=== PATIENT | male | born 1970 | race Caucasian/White ===

== ENCOUNTER 2017-03-01 10:32 | Inpatient (IN) | payer OTHER ==
[2017-03-01 11:51] LABS: BASO % 0.6 % (0.0-2.0); EOS % 0.3 % (0.0-4.0); HEMATOCRIT 55.6 % (35.0-51.0); LYMPH # 0.9 K/uL (1.0-4.3); LYMPH % 12.8 % (20.0-40.0); MEAN CELL VOLUME 93.6 fL (80.0-94.0); MEAN CORPUSCULAR HEMOGLOBIN 32.6 pg (27.0-31.0); MEAN CORPUSCULAR HGB CONC 34.8 g/dL (33.0-37.0); MEAN PLATELET VOLUME 8.7 fL (7.2-11.7); MONO # 0.8 K/uL (0.0-0.8); MONO % 12.3 % (0.0-10.0); NRBC % 0.1 % (0.0-2.0); RED CELL DISTRIBUTION WIDTH 13.7 % (11.5-14.5); WHITE BLOOD COUNT 6.7 K/uL (4.8-10.8)
[2017-03-01 11:55] LABS: RBC URINE 176 /hpf (0-3); URINE BILIRUBIN NEGATIVE (NEGATIVE); URINE BLOOD 3+ (NEGATIVE); URINE CALCIUM OXALATE CRYSTALS FEW /hpf (<OCC); URINE COLOR Amber (YELLOW); URINE GLUCOSE (UA) NORMAL (Normal); URINE KETONE NEGATIVE (NEGATIVE); URINE LEUKOCYTE ESTERASE NEG Leu/uL (Negative); URINE PROTEIN 2+ mg/dL (NEGATIVE); WBC URINE 3 /hpf (0-5)
[2017-03-01 11:59] LABS: CHLORIDE 95 mmol/L (98-107); POTASSIUM 4.1 mmol/L (3.6-5.2); SODIUM 131 mmol/L (132-148)
--- NOTE | 2017-03-01 12:00 | C.PDOC ---
History Of Present Illness Patient is a 46 y/o male with history of alcohol abuse presents requesting detox. Patient reports last alcohol use was yesterday and notes tremors. He denies physical complaints, suicidal, or homicidal ideations. Time Seen by Provider: 03/01/17 11:11 Chief Complaint (Nursing): Substance Abuse History Per: Patient History/Exam Limitations: no limitations Onset/Duration Of Symptoms: Hrs Current Symptoms Are (Timing): Still Present Suicide/Self Injury Attempted (Context): None Modifying Factor(s): Alcohol Pain Scale Rating Of: 0 Associated Symptoms: denies: Suicidal Thoughts Involuntary Hold By: None Recent travel outside of the [place]: No Past Medical History Reviewed: Historical Data, Nursing Documentation, Vital Signs Vital Signs: Last Vital Signs Temp 98.5 F 03/01/17 13:05 Pulse 96 H 03/01/17 13:05 Resp 20 03/01/17 13:05 BP 145/97 H 03/01/17 13:05 Pulse Ox 98 03/01/17 13:05 Family History: States: Unknown Family Hx - Social History Hx Alcohol Use: Yes Hx Substance Use: No - Immunization History Hx Tetanus Toxoid Vaccination: No Hx Influenza Vaccination: No Hx Pneumococcal Vaccination: No Review Of Systems Constitutional: Negative for: Fever, Chills Respiratory: Negative for: Cough, Shortness of Breath Gastrointestinal: Negative for: Nausea, Vomiting, Abdominal Pain Neurological: Positive for: Other (Arm tremors ) Psych: Negative for: Suicidal ideation Physical Exam - Physical Exam Appears: Non-toxic, No Acute Distress Skin: Warm, Dry Head: Atraumatic Eye(s): bilateral: Normal Inspection Oral Mucosa: Moist Tongue: Other (Positive tongue fasciculations) Neck: Supple Chest: Symmetrical, No Deformity Cardiovascular: Rhythm Regular, No Murmur Respiratory: No Rales, No Rhonchi, No Wheezing, Other (Clear to auscultation bilaterally ) Gastrointestinal/Abdominal: Soft, No Tenderness, No Distention, No Guarding, No Rebound Extremity: Normal ROM, No Tenderness, Other (Tremors in bilateral upper extremities ) Neurological/Psych: Oriented x3 ED Course And Treatment - Laboratory Results Result Diagrams: 03/01/17 11:47 03/01/17 11:47 O2 Sat by Pulse Oximetry: 99 (RA) - Radiology CXR: Viewed By Me CXR Interpretation: Yes: No Acute Disease Medical Decision Making Medical Decision Making: EKG, CXR, and labs were ordered. 12:18PM Patient in active alcohol withdrawal and was given librium in ED. EKG shows NSR at 73bpm with normal intervals and no st changes. Cxray negative for acute pathology. Labs and ua reviewed. Patient has hematuria and elevated lfts. He has no somatic complaints. Patient and patient's brother made aware of the abnormalities and will need outpatient follow-up. Patient is medically clear for inpatient detox. Disposition - Disposition Disposition: HOSPITALIZED Disposition Time: 12:19 Condition: FAIR - Clinical Impression Clinical Impression: Alcohol dependence, Elevated liver function tests, Hematuria - Scribe Statement The provider has reviewed the documentation as recorded by the Scribe Mela Matthews All medical record entries made by the Angela were at my direction and personally dictated by me. I have reviewed the chart and agree that the record accurately reflects my personal performance of the history, physical exam, medical decision making, and the department course for this patient. I have also personally directed, reviewed, and agree with the discharge instructions and disposition.
[2017-03-01 12:01] LABS: ALB/GLOB RATIO 1.2 (1.0-2.1); ALKALINE PHOSPHATASE 148 U/L (38-126); AST/SGOT 207 U/L (17-59); BLOOD UREA NITROGEN 15 mg/dL (9-20); CARBON DIOXIDE 24 mmol/L (22-30); GFR AFRICAN-AMERICAN > 60; TOTAL PROTEIN 8.4 g/dL (6.3-8.3)
[2017-03-01 12:02] LABS: ALCOHOL SERUM < 10 mg/dl (0-10); ALT/SGPT 134 U/L (21-72); CALCIUM 9.8 mg/dl (8.6-10.4); GLUCOSE,RANDOM 91 mg/dL (75-110)
--- NOTE | 2017-03-01 12:03 | RAD ---
HISTORY: detox COMPARISON: No prior. FINDINGS: LUNGS: No acute infiltrates. Questionable small nodular density left lung apex PLEURA: No significant pleural effusion identified, no pneumothorax apparent. CARDIOVASCULAR: Normal. OSSEOUS STRUCTURES: No significant abnormalities. VISUALIZED UPPER ABDOMEN: Normal. OTHER FINDINGS: None. IMPRESSION: No active disease.
[2017-03-01] MEDS ORDERED: Pneumococcal 23-Valent Vaccine IM ONE (14:37)
--- NOTE | 2017-03-01 15:01 | PCM.BM ---
<Amanda Herman - Last Filed: 03/01/17 14:58> Treatment Plan Problems - Problems identified on initial assessmt potential for alcohol withrawal Date Initiated: 03/01/17 Time Initiated: 14:59 Assessment reference: NA Status: Active anxiety Date Initiated: 03/01/17 Time Initiated: 15:00 Assessment reference: NA Status: Active Treatment assets and liabiliti Patient Assests: cooperative, motivated, self-reliant, ADL independent, physically healthy, good support system, negotiates basic needs, cognitively intact Patient Liabilities: substance abuse - Milieu Protocol Maintain good personal hygiene: daily Encourage regular showers, daily Remind patient to perform daily oral care, daily Assist patient to perform ADL's Conduct patient checks and document Observation sheet: Q15 minutes Maintain personal safety: every shift Educate patient to report safety concerns to staff, every shift Monitor environment for contraband/sharps Medication safety: Monitor for expected outcome, potential side effects: every shift, Assess barriers to learning: every shift, Assess readiness for medication education: every shift <Blayne Nick - Last Filed: 03/02/17 21:31> - Diagnosis (1) Alcohol dependence Status: Acute Interventions: 03/02/17 21:32 * Assess 7x/week regarding severity of withdrawal * Educate regarding risks, benefits, side effects and alternatives of medications * Use Motivational Interviewing for abstinence * Use CBT for relapse prevention * Medication management for withdrawal symptoms * Encourage medication assisted treatment * <Keyana Hopson - Last Filed: 03/03/17 16:07> Family Contact Family involvement: Family/SO is involved Family contact: Patient agrees to contact, Telephone contact initiated by staff Family contact name: Family contacted how many times per week?: 3 - Goals for Treatment Patient goals for treatment: Complete detox and transition to o/o treatment. Discharge/Continuing Care - Education Needs Education Needs: Patient Medication, Patient Diagnosis/Disease Process, Patient Coping Skills, Patient Anger Management skills, Patient Placement options, Patient Community resources - Discharge Discharge Criteria: No longer exhibiting s/s of withdrawal, Reduction of target symptoms Discharge to:: With Family - Treatment Team Participation Patient/Family/SO Statement: 03/03/17 16:06 "I know I need to have outpatient aftercare. I need support." Discussed with Family/SO: No Was Patient/Family/SO present at Treatment Team Meeting: Yes
[2017-03-01] MEDS: Multiple Vitamins Tab PO SCH (15:59)
[2017-03-02 08:48] LABS: CHLORIDE 98 mmol/L (98-107); POTASSIUM 3.3 mmol/L (3.6-5.2); SODIUM 132 mmol/L (132-148)
[2017-03-02 08:50] LABS: ALB/GLOB RATIO 1.2 (1.0-2.1); ALKALINE PHOSPHATASE 107 U/L (38-126); AST/SGOT 234 U/L (17-59); BILIRUBIN,TOTAL 3.1 mg/dL (0.2-1.3); CARBON DIOXIDE 26 mmol/L (22-30); GFR AFRICAN-AMERICAN > 60; TOTAL PROTEIN 6.7 g/dL (6.3-8.3)
[2017-03-02 08:51] LABS: ALT/SGPT 160 U/L (21-72); BLOOD UREA NITROGEN 19 mg/dL (9-20); CALCIUM 9.3 mg/dl (8.6-10.4); GLUCOSE,RANDOM 90 mg/dL (75-110); MAGNESIUM 1.7 mg/dL (1.6-2.3)
[2017-03-02 09:22] LABS: THYROID STIMULATING HORMONE 1.82 mIU/L (0.46-4.68)
[2017-03-02] MEDS: Multiple Vitamins Tab PO SCH (09:24)
[2017-03-02] MEDS ORDERED: Potassium Chloride 20 mEq ER Tab PO ONE ×3 (10:00→16:31)
--- NOTE | 2017-03-02 13:16 | CARD ---
APPROVED REPORT EKG Measurement Heart [id number] <Conclusion> Normal sinus rhythm Normal ECG
--- NOTE | 2017-03-02 14:04 | PCM.PSYCH ---
Initial Psychiatric Evaluation - Initial Psychiatric Evaluation Type of Admission: Voluntary Legal Status: Capacity Chief Complaint (in patient's own words): "alcohol" Patient's Reaction to Hospitalization: A 46 year old male is admitted for alcohol withdrawal and detox. Pt started drinking since the age of 13. Pt admits to drinking 6 beers a day and more on the weekends. Pt admit 12 days ago, he took off from work and left home so he can binge on alcohol. Denies any drug use currently or in the past. Smokes 1 pack of cigarettes a day. Prior to admission, pt was experiencing nausea, vomiting and tremors. Pt denies feeling depressed, difficulty sleeping, any SI or HI, or ebenezer auditory or visual halluciations. Pt is , no children, and lives with his . 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 Pt denies any legal issues currently or in the past. Pt mentioned he visited a rehabilitation center in [place], but they told him he must first complete a detox program prior to entering their program. Pt denies having any psychiatric illnesses. Pt has never attended any detox/rehab facility in the past. PMH: denies Allergies: NKDA Medications: Denies Famil hx: Father uses alcohol and has HTN, Denies any one else with any medical issues, psychiatric issues, or substance abuse History of Present Illness and Precipitating Events: A 46 year old male is admitted for alcohol withdrawal and detox. Pt started drinking since the age of 13. Pt admits to drinking 6 beers a day and more on the weekends. Pt admit 12 days ago, he took off from work and left home so he can binge on alcohol. Denies any drug use currently or in the past. Smokes 1 pack of cigarettes a day. Prior to admission, pt was experiencing nausea, vomiting and tremors. Pt denies feeling depressed, difficulty sleeping, any SI or HI, or ebenezer auditory or visual halluciations. Pt is , no children, and lives with his . 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 Pt denies any legal issues currently or in the past. Pt denies having any psychiatric illnesses. Pt has never attended any detox/rehab facility in the past. PMH: denies Allergies: NKDA Medications: Denies Family hx: Father uses alcohol and has HTN. Denies any one else with any medical issues, psychiatric issues, or substance abuse Current Medications: Active Medications Generic Name Dose Route Start Last Admin Trade Name Freq PRN Reason Stop Dose Admin Clonidine HCl 0.1 mg 03/01/17 14:59 Catapres PO Q4H PRN HR > 100 OR BP > 150/100 Folic Acid 1 mg 03/01/17 15:00 03/02/17 09:24 Folic Acid PO 1 mg DAILY RYAN Administration Gabapentin 100 mg 03/01/17 18:00 03/02/17 09:24 Neurontin PO 100 mg TID RYAN Administration Hydroxyzine HCl 25 mg 03/01/17 15:00 Atarax PO Q4H PRN Anxiety Lorazepam 2 mg 03/01/17 15:00 03/02/17 09:24 Ativan PO 03/06/17 14:59 2 mg Q6H RYAN Administration Taper Lorazepam 1 mg 03/01/17 14:59 Ativan PO Q4H PRN Symptoms of alcohol withdrawl Multivitamins 1 tab 03/01/17 15:00 03/02/17 09:24 Hexavitamin PO 1 tab DAILY RYAN Administration Thiamine HCl 100 mg 03/01/17 15:00 03/02/17 09:24 Vitamin B1 Tab PO 100 mg DAILY RYAN Administration Trazodone HCl 50 mg 03/01/17 14:59 03/01/17 21:40 Desyrel PO 50 mg HS PRN Administration Insomnia Past Psychiatric History - Past Psychiatric History Pertinent Medical Hx (Current Medical&Sleep Prob, Allergies): Allergies Allergy/AdvReac Type Severity Reaction Status Date / Time No Known Allergies Allergy Unverified 03/01/17 11:31 No Known Home Med 03/01/17 Review of Systems - Neurological Neurological: Dizziness, Tremor - Psychiatric Psychiatric: absent: Abnormal Sleep Pattern, Anhedonia, Auditory Hallucinations , Behavioral Changes, Change in Appetite, Confusion, Depression, Difficulty Concentrating, Hallucinations, Homicidal Ideation, Hopelessness, Suicidal Ideation, Visual Hallucinations Mental Status Examination - Personal Presentation Personal Presentation: Looks older than stated age - Affect Affect: Constricted - Motor Activity Motor Activity: Calm - Speech Speech: Organized - Mood Mood: Neutral - Formal Thought Process Formal Thought Process: No Impairment - Obsessions/Compulsions Obsessions: No Compulsions: No - Cognitive Functions Orientation: Person, Place, Situation, Time Sensorium: Alert Attention/Concentration: Attentive Abstract Thinking: Sagle Estimate of Intelligence: Average Judgement: Intact, as evidence by: Insight regarding need for hospitalization Memory: Recent intact, as evidence by: Ability to recall events of the day, Remote intact, as evidenced by: Abilit to recall sig. life events - Risk Risk: Withdrawal, Diminished functioning - Strength & Assets Inventory Strength & Assets Inventory: Family support, Cooperative DSM 5 DX - DSM 5 DSM 5 Diagnosis: Alcohol withdrawal Alcohol Use Disorder- Severe Tobacco use Disorder- Severe - Recommended/Plan of Treatment Treatment Recommendations and Plan of Treatment: Ativan Detox As needed medications Gabapentin for augmentation Attend groups and activities Supportive therapy and psychoeducation [place] for abstinence CBT for relapse prevention Encourage MAT Encourange pt to speak with social workers about rehab or IOP to attend after discharge Attend self-help groups as well 34 min Projected ELOS: 5-6 days Prognosis: Good - Smoking Cessation Smoking Cessation Initiated: Yes
[2017-03-02 19:15] LABS: RBC URINE 104 /hpf (0-3); TRANSITIONAL EPITHIAL < 1 /hpf (0-3); URINE BACTERIA RARE (<OCC); URINE BILIRUBIN NEGATIVE (NEGATIVE); URINE BLOOD 3+ (NEGATIVE); URINE CALCIUM OXALATE CRYSTALS RARE /hpf (<OCC); URINE COLOR Amber (YELLOW); URINE GLUCOSE (UA) NORMAL (Normal); URINE KETONE NEGATIVE (NEGATIVE); URINE LEUKOCYTE ESTERASE NEG Leu/uL (Negative); URINE PROTEIN 1+ mg/dL (NEGATIVE); WBC URINE 2 /hpf (0-5)
[2017-03-03 09:29] LABS: CHLORIDE 102 mmol/L (98-107); POTASSIUM 4.1 mmol/L (3.6-5.2); SODIUM 134 mmol/L (132-148)
[2017-03-03 09:31] LABS: GFR AFRICAN-AMERICAN > 60
[2017-03-03 09:32] LABS: ALB/GLOB RATIO 1.1 (1.0-2.1); ALKALINE PHOSPHATASE 100 U/L (38-126); ALT/SGPT 194 U/L (21-72); AST/SGOT 179 U/L (17-59); BILIRUBIN,TOTAL 2.2 mg/dL (0.2-1.3); BLOOD UREA NITROGEN 19 mg/dL (9-20); CARBON DIOXIDE 21 mmol/L (22-30); GLUCOSE,RANDOM 85 mg/dL (75-110)
[2017-03-03 09:33] LABS: CALCIUM 9.1 mg/dl (8.6-10.4)
[2017-03-03] MEDS: Multiple Vitamins Tab PO SCH (09:47)
[2017-03-03] MEDS ORDERED: Ergocalciferol 50,000 Intl Units Cap PO SCH (10:00)
--- NOTE | 2017-03-03 13:38 | PCM.PYCHPN ---
Psychiatric Progress Note - Psychiatric Progress Note Patient seen today, length of contact: 15 Patient Chief Complaint: "Feel good" Problems Identified/Issues Discussed: Pt is seen, chart reviewed, Case discussed with staff Support given, CBT and TX used briefly Slept well, not feeling anxious or depressed Denies any SI, tremors, or any auditory or visual hallucinations Speaking with SW about short term rehab programs to attend after discharge Medication Change: Yes (daily detox) Medical Record Reviewed: Yes Mental Status Examination - Cognitive Function Orientation: Person, Place, Situation, Time Memory: Intact Attention: WNL Concentration: WNL Association: WNL Fund of Knowledge: WNL - Mood Mood: Neutral - Affect Affect: Constricted - Speech Speech: Appropriate - Formal Thought Process Formal Thought Process: No Impairment - Suicidal Ideation Suicidal Ideation: No - Homicidal Ideation Homicidal Ideation: No Goal/Treatment Plan - Goal/Treatment Plan Need for Continued Stay: Discharge may exacerbated symptoms Progress Toward Problem(s) and Goals/Treatment Plan: Ativan Detox As needed medications Gabapentin for augmentation Attend groups and activities Supportive therapy and psychoeducation Encourange pt to speak with social workers about rehab or IOP to attend after discharge Estimated Date of D/C: 03/05/17 - Smoking Cessation Smoking Cessation Initiated: No
[2017-03-03] MEDS ORDERED: Potassium Chloride 20 mEq ER Tab PO ONE (17:00)
[2017-03-03] MEDS ORDERED: Influenza Vaccine 60 mcg/0.5 mL SYR (4YR UP) IM ONE (17:25)
[2017-03-04] MEDS: Multiple Vitamins Tab PO SCH (09:21)
--- NOTE | 2017-03-04 11:15 | PCM.PYCHPN ---
Psychiatric Progress Note - Psychiatric Progress Note Patient seen today, length of contact: 15 Patient Chief Complaint: "Could not sleep" Problems Identified/Issues Discussed: The pt is seen, chart reviewed, case discussed with staff. The pt is compliant with medications and reports no side-effects. Pt did not sleep well, only slept for a few hours Upon examination, Pt has hand tremors of low intensity Denies any SI, Auditory or visual hallucinations, denies feeling depressed or anxious Will add seroquel for insomnia Plab after discharge is to attend AA meetings and outpatient programs Medication Change: Yes (daily detox) Medical Record Reviewed: Yes Mental Status Examination - Cognitive Function Orientation: Person, Place, Situation, Time Memory: Intact Attention: WNL Concentration: WNL Association: WNL Fund of Knowledge: WNL - Mood Mood: Neutral - Affect Affect: Constricted - Speech Speech: Appropriate - Formal Thought Process Formal Thought Process: No Impairment - Suicidal Ideation Suicidal Ideation: No - Homicidal Ideation Homicidal Ideation: No Goal/Treatment Plan - Goal/Treatment Plan Need for Continued Stay: Discharge may exacerbated symptoms Progress Toward Problem(s) and Goals/Treatment Plan: Ativan Detox Seroquel for insomnia As needed medications Gabapentin for augmentation Attend groups and activities Supportive therapy and psychoeducation Encourange pt to speak with social workers about rehab or IOP to attend after discharge Estimated Date of D/C: 03/05/17 - Smoking Cessation Smoking Cessation Initiated: No
--- NOTE | 2017-03-05 08:45 | PCM.PYCHDC ---
Mental Status Examination - Mental Status Examination Orientation: Person, Place, Situation, Time Memory: Intact Mood: Anxious Affect: Constricted Attention: WNL Concentration: WNL Association: WNL Fund of Knowledge: WNL Formal Thought Process: No Impairment Suicidal Ideation: No Current Homicidal Ideation?: No Discharge Summary - Discharge Note Reason for Hospitalization: Alcohol detox Consultations:: List each consultation separately and include: 1. Reason for request. 2. Findings. 3. Follow-up Summary of Hospital Course include:: 1. Description of specific treatment plan utilized for patients during their course of treatmen. 2. Summarize the time- course for resolution of acute symptoms and/or regressed behaviors. 3. Describe issues identified and worked on during hospitalization. 4. Describe medication utilized. 5. Describe medical problems identified and treated. 6. Reassessment of suicide risk Summary of Hospital Course: The pt is seen, chart reviewed and case discussed. On admission: A 46 year old male is admitted for alcohol withdrawal and detox. Pt started drinking since the age of 13. Pt admits to drinking 6 beers a day and more on the weekends. Pt admit 12 days ago, he took off from work and left home so he can binge on alcohol. Denies any drug use currently or in the past. Smokes 1 pack of cigarettes a day. Prior to admission, pt was experiencing nausea, vomiting and tremors. Pt denies feeling depressed, difficulty sleeping, any SI or HI, or ebenezer auditory or visual halluciations. Pt is , no children, and lives with his . 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 Pt denies any legal issues currently or in the past. Pt denies having any psychiatric illnesses. Pt has never attended any detox/rehab facility in the past. PMH: denies Allergies: NKDA Medications: Denies Family hx: Father uses alcohol and has HTN. Denies any one else with any medical issues, psychiatric issues, or substance abuse Hospital course: The pt was admitted and started on treatment with psychotherapy, support, psychoeducation and medications. VT and CBT used. The pt attended groups and activities, as well as milieu therapy. All the risks and benefits of medications are discussed and the patient understood and agreed. The pt improved with the treatments provided. After care discussed with the patient. He will attend [facility] - Final Diagnosis (DSM 5) Condition upon Discharge: IMPROVED DSM 5: Alcohol withdrawal Alcohol Use Disorder- Severe Tobacco use Disorder- Severe Disposition: HOME/ ROUTINE Follow-up Treatment Plan: Continue below medications after discharge. Follow after care plan as discussed. Use relapse prevention skills Return to ER or call 911 if suicidal, homicidal or symptoms relapse. Stay away from stress, alcohol and drugs. See primary doctor regularly and get labs. Prescriptions/Medication Reconciliation: Ergocalciferol [Drisdol 50,000 Intl Units Cap] 1 cap PO Q7D #12 cap Gabapentin [Neurontin] 300 mg PO BID #60 cap QUEtiapine [Seroquel] 100 mg PO HS #30 tab
[2017-03-05] MEDS: Multiple Vitamins Tab PO SCH (09:23)
[2017-03-05 15:47] VITALS: BP 135/88; PULSE 93; RESP 20; TEMP 98.7; O2SAT 96
== END 2017-03-05 16:23 | disposition home or self-care (01) | DRG 751 ==
LOC: C.ER 10:32 → C.9E 13:05 → C.7D 13:21
PROVIDERS: ADMIT Psychiatry & Neurology Psychiatry; ATTEND Psychiatry & Neurology Psychiatry
PROC: HZ2ZZZZ Detoxification Services for Substance Abuse Treatment (ICD-10-PCS; principal; 2017-03-01)
PROC: HZ42ZZZ Group Counseling for Substance Abuse Treatment, Cognitive-Behavioral (ICD-10-PCS; 2017-03-01)
PROC: HZ52ZZZ Individual Psychotherapy for Substance Abuse Treatment, Cognitive-Behavioral (ICD-10-PCS; 2017-03-01)
PROC: HZ59ZZZ Individual Psychotherapy for Substance Abuse Treatment, Supportive (ICD-10-PCS; 2017-03-01)
PROC: HZ56ZZZ Individual Psychotherapy for Substance Abuse Treatment, Psychoeducation (ICD-10-PCS; 2017-03-01)
PROC: HZ46ZZZ Group Counseling for Substance Abuse Treatment, Psychoeducation (ICD-10-PCS; 2017-03-01)
DX: F10.230 Alcohol dependence with withdrawal, uncomplicated (principal); F17.210 Nicotine dependence, cigarettes, uncomplicated; Y90.0 Blood alcohol level of less than 20 mg/100 ml